=== PATIENT | male | born 1985 | race Caucasian/White ===

== ENCOUNTER 2021-07-26 17:46 | Emergency (ER) | payer SELFPAY ==
[~2021-07-26] VITALS: Ht 180.3 cm; Wt 77.1 kg
[2021-07-26] MEDS ORDERED: KETOROLAC TROMETHAMINE INJ 30 MG/ML VIAL IV ONE (18:30)
[2021-07-26] MEDS ORDERED: ONDANSETRON HCL/PF 4 MG/2 ML VIAL IVP ONE (18:30)
[2021-07-26] MEDS ORDERED: IV NS 0.9% 1,000 ML BAG IV ONE (18:30)
[2021-07-26] MEDS ORDERED: ACETAMINOPHEN 650 MG/20.3 ML UDC PO ONE (18:30)
[2021-07-26] MEDS ORDERED: MORPHINE SULFATE INJ 2 MG/ML DISP.SYRIN IV ONE (18:30)
[2021-07-26] MEDS ORDERED: diphenhydrAMINE HCL 50 MG/ML VIAL IV ONE (18:30)
[2021-07-26] MEDS ORDERED: diphenhydrAMINE HCL 50 MG/ML VIAL ONE (18:38)
[2021-07-26] MEDS ORDERED: MORPHINE SULFATE INJ 4 MG/ML DISP.SYRIN ONE (18:38)
[2021-07-26] MEDS ORDERED: ONDANSETRON HCL/PF 4 MG/2 ML VIAL ONE (18:38)
[2021-07-26] MEDS ORDERED: KETOROLAC TROMETHAMINE 15 MG/ML VIAL ONE (18:38)
[2021-07-26] MEDS ORDERED: ACETAMINOPHEN ES 500 MG TABLET ONE (18:40)
--- NOTE | 2021-07-26 18:58 | NUR ---
ADDENDUM: Intravenous End Time Documentation: Normal saline 1 liter (IV-WO) : start time: 1857 PM ; end time:1957 PM : IV site: LAC PIV# 20 Port # 1
[2021-07-26] MEDS ORDERED: METH4TAB3 PO (19:59)
[2021-07-26] MEDS ORDERED: HYDR-4303 PO (19:59)
[2021-07-26] MEDS ORDERED: HYDROMORPHONE 1 MG/1 ML DISP.SYRIN IV ONE (20:00)
[2021-07-26] MEDS ORDERED: HYDROMORPHONE 1 MG/1 ML DISP.SYRIN ONE (20:04)
--- NOTE | 2021-07-26 20:15 | NUR ---
PT DISCHARGE INSTRUCTIONS GIVEN PT LEFT IN STABLE CONDITION
[2021-07-26 20:17] VITALS: BP 118/78
== END 2021-07-26 20:17 | disposition home or self-care (01) ==
LOC: ER 18:00
DX: S39.012A Strain of muscle, fascia and tendon of lower back, initial encounter (principal); S20.211A Contusion of right front wall of thorax, initial encounter; W11.XXXA Fall on and from ladder, initial encounter; Y93.89 Activity, other specified; Y92.89 Other specified places as the place of occurrence of the external cause; Y99.8 Other external cause status
CPT/HCPCS: 71100; 96361; 96374; 96375; 99284; J1170; J1200; J1885; J2270; J2405; J7030